=== PATIENT | male | born 1960 | race Caucasian/White ===

== ENCOUNTER 2021-07-11 12:10 | Emergency (ER) | payer MEDICARE, MEDICAID, SELFPAY ==
--- NOTE | ~2021-07-11 | XR_ITS ---
EXAMINATION: XR chest 2V EXAM DATE: 07/11/2021 13:49 INDICATION: cough, wheezing, few days. Hx pneumonia, non smoker . TECHNIQUE: Frontal and lateral projections of the chest obtained and reviewed. There is no prior hattie dy for comparison. FINDINGS: The lungs are clear. There are no pleural effusions. The cardiomediastinal silhouette is within normal limits. There is no pneumothorax suspected. Patient has diffuse idiopathic skeletal h yperostosis (DISH). IMPRESSION: No acute cardiopulmonary findings. Reviewed, dictated and finalized at location B.
[2021-07-11 12:35] VITALS: BP 141/71; PULSE 92; RESP 24; TEMP 36.9; O2SAT 91
--- NOTE | 2021-07-11 13:32 | ED.URI ---
HPI - URI/Sore Throat General Chief Complaint: Upper Respiratory Infection Stated Complaint: cough/fever Time Seen by Provider: 07/11/21 13:32 Source: patient Mode of arrival: ambulatory Limitations: no limitations History of Present Illness HPI Narrative: Christiano Gonzalez is a 61 yo male with a PMH of intellectual disability, dissociative disorder, hypertension, high cholesterol , BPH, diabetes type 2, who is brought to the [facility] from a assisted with complaints of increased coughing and wheezing over the last 3 days. He has flu shot yesterday so they are less concerned about the low-grade fever that he was running thinking it was related to the vaccine. He is currently on a biphosphate, Risperdal for behavior control medication for high cholesterol and hypertension, aggressive behavior from TBI. Related Data Home Medications Medication Instructions Recorded Confirmed albuterol sulfate 90 mcg/actuation 1 inh INHALATION Q4-6H PRN 07/03/21 07/11/21 breath activated powder inhaler,sensor alendronate 70 mg tablet 70 mg PO WEEKLY 07/03/21 07/11/21 aripiprazole 5 mg tablet 5 mg PO DAILY 07/03/21 07/11/21 atorvastatin 40 mg tablet 40 mg PO DAILY 07/03/21 07/11/21 calcium carbonate 600 mg calcium 600 mg PO DAILY 07/03/21 07/11/21 (1,500 mg) tablet esomeprazole magnesium 40 mg 40 mg PO DAILY 07/03/21 07/11/21 capsule,delayed release losartan 50 mg tablet 50 mg PO DAILY 07/03/21 07/11/21 metformin 1,000 mg tablet 1,000 mg PO BID 07/03/21 07/11/21 omega-3 fatty acids 1,000 mg 1,000 mg PO DAILY 07/03/21 07/11/21 capsule oxybutynin chloride 5 mg tablet 5 mg PO TID 07/03/21 07/11/21 tamsulosin 0.4 mg capsule 0.4 mg PO DAILY 07/03/21 07/11/21 atenolol 50 mg PO DAILY 07/11/21 07/11/21 escitalopram oxalate 5 mg PO DAILY 07/11/21 07/11/21 glipizide 2.5 mg PO DAILY 07/11/21 07/11/21 pravastatin 20 mg PO DAILY 07/11/21 07/11/21 Allergies Allergy/AdvReac Type Severity Reaction Status Date / Time Penicillins Allergy Unknown Unknown Verified 07/03/21 14:20 Review of Systems Review of Systems: CONSTITUTIONAL: Low-grade fever, chills, sweats. EYES: Denies visual changes, redness, discharge. ENT: Denies rhinorrhea, has congestion, sore throat, otalgia. CARDIOVASCULAR: Denies chest pain, palpitations, edema. RESPIRATORY: Denies dyspnea, has wheezing, has cough GASTROINTESTINAL: Denies abdominal pain, nausea, vomiting, diarrhea. GENITOURINARY: Denies dysuria, hematuria, abnormal discharge SKIN: Denies rash or itching. NEUROLOGIC: Denies numbness, or focal weakness. PSYCHIATRIC: Denies anxiety or depression. [facility] Past Medical History Medical History Aggressive behavior BPH (benign prostatic hyperplasia) Diabetes type 2, controlled High cholesterol HTN (hypertension) Traumatic brain injury Family History Family History Mother Diabetes mellitus Social History Social History Smoking status: Never smoker Alcohol intake: never Comments At time of signature, I agree with nursing past medical, surgical, social and family history. There is no relevant family history pertinent to the presenting complaint. Exam Narrative: GENERAL: This is a well-nourished, well-developed patient, in mild distress. HEAD: normocephalic, atraumatic. EYES: Sclera clear/white. Vision is grossly intact. EARS: External ears normal, auditory canals clear and without drainage, TMs normal without perforation. Hearing grossly intact. NOSE: External nose normal without nasal discharge THROAT: Mucous membranes moist, posterior pharynx pink NECK: Neck supple, CARDIOVASCULAR: Regular rate and rhythm without murmurs, gallops, or rubs. RESPIRATORY: Clear to auscultation. Breath sounds equal bilaterally with bilateral diffuse wheezing-no rales, or rhonchi. GASTROINTESTINAL: Abd
== END 2021-07-11 14:59 | disposition home or self-care (01) ==
PROVIDERS: Emergency Provider Nurse Practitioner
DX: J40 Bronchitis, not specified as acute or chronic (principal); N40.0 Benign prostatic hyperplasia without lower urinary tract symptoms; E11.9 Type 2 diabetes mellitus without complications; E78.00 Pure hypercholesterolemia, unspecified; I10 Essential (primary) hypertension; F79 Unspecified intellectual disabilities; Z79.84 Long term (current) use of oral hypoglycemic drugs
CPT/HCPCS: 71046; 99213; G0463